=== PATIENT | male | born 1985 | race American Indian/Alaskan Native ===

== ENCOUNTER 2019-02-01 13:07 | Emergency (ER) | payer OTHER ==
[~2019-02-01] VITALS: Ht 170.2 cm; Wt 72.6 kg
[2019-02-01] MEDS ORDERED: INDOMETHACIN50 MG PO (14:34)
== END 2019-02-01 14:55 | disposition home or self-care (01) ==
LOC: ED 13:07
DX: S62.315A Displaced fracture of base of fourth metacarpal bone, left hand, initial encounter for closed fracture (principal); W22.8XXA Striking against or struck by other objects, initial encounter; I10 Essential (primary) hypertension
CPT/HCPCS: 73130; 99283-25

== ENCOUNTER 2019-02-24 06:40 | Day surgery (SDC) | payer OTHER ==
[~2019-02-24] VITALS: Ht 170.2 cm; Wt 72.6 kg
[~2019-02-24 06:40] MED LIST: INDOMETHACIN50 MG PO
--- NOTE | 2019-02-24 07:12 | NUR ---
PATIENT BP ELEVATED, PATIENT APPEARS ANXIOUS, RESTLESS IN BED AND SWEATING. PATIENT STATES " I AM NERVOUS I HAVE NEVER HAD SURGERY". PROVIDED PATIENT WITH REASSURANCE. RECHECKED BP LOWER. PATIENT REPORTS NO CARDIAC HISTORY.
[2019-02-24] MEDS ORDERED: HYDROCODON-ACE1 EA11 PO (10:25)
--- NOTE | 2019-02-24 10:35 | NUR ---
02/24/19 1035 Anitra Nicholas 1026- PT ARRIVES TO PACU AROUSABLE TO VOICE. FALLS INSTANTLY BACK TO SLEEP. RESP EVEN AND UNLABORED. OXYGEN SAT HIGH 90'S TO 100% ON 8L VIA MASK. 1034- OXYGEN TITRATED OFF.
--- NOTE | 2019-02-24 12:06 | NUR ---
PATIENT RATING PAIN 7/10 ON PAIN SCALE. ADMINISTERED 1 TAB NORCO. TOLERATING FOOD AND LIQUIDS. NO REPORTED NAUSEA. UP TO BATHROOM, STABLE ON FEET. PROVIDED EDUCATION WITH DRESSING CARE, AND FOLLOW UP APPOINTMENTS. STRONG RADIAL PULSES HAND IS WARM TO TOUCH. ICE APPLIED AND ELEVATED ON PILLOW. DISCUSSED PAIN MANAGEMENT. VOIDING WELL. CALL LIGHT WITHIN REACH, NO OTHER NEEDS AT THIS TIME.
--- NOTE | 2019-02-25 07:56 | OR ---
[facility] [address] [place], [place] [address] Signed DATE OF OPERATION: 02/24/2019 SURGEON: Toi Mejia MD PREOPERATIVE DIAGNOSIS: Comminuted displaced P1 fracture, left ring finger. POSTOPERATIVE DIAGNOSIS: Comminuted displaced P1 fracture, left ring finger. PROCEDURE PERFORMED: Open reduction and internal fixation of left ring P1. MANAGER QA: NORBERTO Serrano. Bernadette was present critical for all portions of the procedure. ANESTHESIA: General with digital block. TOURNIQUET TIME: 68 minutes. IMPLANTS: 1.3 mm wide plate with 9 screws. BRIEF HISTORY: Errol is a 33-year-old gentleman, who fractured his finger and subsequently was referred to our Clinic. Because of the displaced comminuted angulated nature of the fracture that was extremely unstable, we recommended open reduction and internal fixation. He agreed to proceed. DESCRIPTION OF PROCEDURE: Once consent was obtained, he was taken to the operating room. After adequate anesthesia, he was taken to the operating room. After adequate anesthesia, he was placed on the operating room table with a hand table. The hand was prepped and draped in a standard sterile fashion up to a well-padded proximal arm tourniquet. The C-arm was exsanguinated using Esmarch bandage. Tourniquet was inflated to 200 mmHg. Dorsal lateral approach to P1 was then taken through the skin and subcutaneous tissue. The sagittal band was then longitudinally incised and elevated anteriorly and posteriorly. Electronically Signed By: TOI MEJIA MD 02/25/19 0756 PATIENT NAME: ERROL CAGLE OPERATIVE REPORT DATE OF : 85 REPORT #: [id number] PHYSICIAN: TOI MEJIA MD PCP: [facility] REPORT IS CONFIDENTIAL AND NOT TO BE RELEASED WITHOUT AUTHORIZATION [facility] [address] [place] [id number] Signed The callus was then taken out of the fracture sites of the fragments could be identified. The fracture was then reduced with longitudinal traction, manipulation, and held with a clamp. This was checked using image intensifier and found to be satisfactory. The wide plate was then fashioned to fit the dorsal lateral aspect, capturing the displaced fragment. The proximal and distal ends at one screw in the midportion of the plate were placed, checked using image intensifier, and found to be satisfactory. The clamp was removed. Remaining screws were drilled and appropriate length screws were placed. Two screws were switched out for being too long on the final radiographs. Final radiographs showed good plate placement, alignment and reduction. The wound was then copiously irrigated with antibiotic solution. The sagittal band was then reduced and repaired using 4-0 Vicryl, the subcutaneous tissue with 3-0 Vicryl, and the skin with 3-0 nylon. The wound was then dressed with Xeroform, 4 x 8, and an ulnar gutter splint. He tolerated the procedure well. All sponge, needle, and instrument counts were correct. Toi Mejia MD BA/OSMAR /[id number] Copies: ~ Electronically Signed By: TOI MEJIA MD 02/25/19 0756 PATIENT NAME: TSERINGERROLSHARAD YIP OPERATIVE REPORT DATE OF : 85 REPORT #: [id number] PHYSICIAN: TOI MEJIA MD PCP: [facility] REPORT IS CONFIDENTIAL AND NOT TO BE RELEASED WITHOUT AUTHORIZATION
== END 2019-02-24 12:30 | disposition home or self-care (01) ==
LOC: DS 06:40 → OPS 06:40 → DS 08:45 → OPS 12:30
PROVIDERS: Specialist
PROC: 0PSV04Z Reposition Left Finger Phalanx with Internal Fixation Device, Open Approach (ICD-10-PCS; principal; 2019-02-24 08:45)
DX: S62.615A Displaced fracture of proximal phalanx of left ring finger, initial encounter for closed fracture (principal); F17.210 Nicotine dependence, cigarettes, uncomplicated; F12.90 Cannabis use, unspecified, uncomplicated
CPT/HCPCS: 73120; A9270; J0330; J0690; J1885; J2250; J2405; J2704; J2795; J3010; J7121

== ENCOUNTER 2020-01-28 12:53 | Emergency (ER) | payer OTHER ==
[~2020-01-28] VITALS: Ht 170.2 cm; Wt 72.6 kg
[~2020-01-28 12:53] MED LIST changes: +HYDROCODON-ACE1 EA11 PO
== END 2020-01-28 14:49 | disposition home or self-care (01) ==
LOC: ED 12:53
DX: S60.221A Contusion of right hand, initial encounter (principal); W01.198A Fall on same level from slipping, tripping and stumbling with subsequent striking against other object, initial encounter; Y99.0 Civilian activity done for income or pay; I10 Essential (primary) hypertension; F17.200 Nicotine dependence, unspecified, uncomplicated
CPT/HCPCS: 73130; 99283-25

== ENCOUNTER 2023-08-02 11:11 | Emergency (ER) | payer OTHER ==
[~2023-08-02] VITALS: Ht 170.2 cm; Wt 75.0 kg
[2023-08-02 11:25] LABS: BASOPHILS 0.4 % (0-2); EOSINOPHILS 0.1 % (0-6); HEMATOCRIT 39.4 % (35.0-50.0); HEMOGLOBIN 13.3 g/dL (12.0-18.0); LYMPHOCYTES 8.4 % (24-44); MCH 32.4 (27-36); MCHC 33.8 g/dl (30-36); MCV 95.7 fl (81-99); MONOCYTES 4.8 % (0-12); NEUTROPHILS 86.3 % (39-80); PLATELET COUNT 105 K/uL (140-440); RBC 4.12 M/ul (4.3-5.7); RDW 14.3 (10.5-15.0)
[2023-08-02 11:42] LABS: ALBUMIN 3.8 g/dL (3.4-5.0); ALBUMIN/GLOBULIN RATIO 1.03 (1.1-2.4); ALCOHOL, MEDICAL <3 ng/dL (<3); ALKALINE PHOSPHATASE 105 U/L (46-116); ALT (SGPT) 58 U/L (14-59); ANION GAP 22.3 (7-21); AST (SGOT) 71 U/L (15-37); BILIRUBIN, TOTAL 0.9 ng/dL (0.2-1.0); BUN/CREATININE RATIO 5.88 (6.0-28.6); CALCIUM 8.8 mg/dL (8.5-10.1); CARBON DIOXIDE 19 mmol/L (21-32); CHLORIDE 98 mmol/L (98-107); CREATININE, SERUM 1.19 mg/dL (0.70-1.30); GLOMERULAR FILTRATION RATE,EST 80 mL/min (>60); POTASSIUM 3.3 mmol/L (3.5-5.1); PROTEIN, TOTAL 7.5 g/dL (6.4-8.2); UREA NITROGEN 7 mg/dL (7-18)
[2023-08-02] MEDS ORDERED: SODIUM CHLORIDE 0.9% 1,000 ML IV PRN (12:00)
[2023-08-02 12:21] LABS: BILIRUBIN, URINE NEGATIVE (negative); BLOOD/HGB, URINE MODERATE (Negative); KETONE, URINE SMALL (Negative); LEUK ESTERASE, URINE NEGATIVE (negative); NITRITE, URINE NEGATIVE (negative)
[2023-08-02 12:33] LABS: BACTERIA, URINE NONE SEEN /hpf (negative); CASTS, URINE HYALINE 1+ \\lpf; COLLECTION TYPE, URINE CLEAN CATCH; CRYSTALS, URINE NONE SEEN (0-1+); EPITHELIAL CELLS, URINE SQUAMOUS 1+ /lpf (0-1+); REFLEX CULTURE, URINE No (No); WHITE BLOOD CELLS, URINE 0-1 /HPF (0-5)
[2023-08-02] MEDS ORDERED: ACETAMINOPHEN 500 MG TAB PO ONE (12:45)
[2023-08-02] MEDS ORDERED: IBUPROFEN 600 MG TAB PO ONE (12:45)
[2023-08-02] MEDS ORDERED: LORazepam 2 MG/ML VIAL IV ONE (13:00)
[2023-08-02] MEDS ORDERED: CHLORDIAZEPOXID25 MG PO (13:06)
[2023-08-02 13:11] LABS: AMPHETAMINES, URINE NEGATIVE (NEGATIVE); BARBITURATES, URINE NEGATIVE (NEGATIVE); BENZODIAZEPINE, URINE NEGATIVE (NEGATIVE); BUPRENORPHINE, URINE NEGATIVE (NEGATIVE); CANNABINOID, URINE POSITIVE (NEGATIVE); COCAINE, URINE NEGATIVE (NEGATIVE); ECSTASY, URINE NEGATIVE (NEGATIVE); FENTANYL, URINE NEGATIVE (NEGATIVE); METHADONE, URINE NEGATIVE (NEGATIVE); OPIATES, URINE NEGATIVE (NEGATIVE); OXYCODONE, URINE NEGATIVE (NEGATIVE); PHENCYCLIDINE, URINE NEGATIVE (NEGATIVE)
[2023-08-02 13:42] VITALS: BP 136/100
--- NOTE | 2023-08-02 21:45 | EKG ---
[facility] [address] [place] [address] Signed Sinus tachycardia Possible Inferior infarct , age undetermined Abnormal ECG No previous ECGs available Confirmed by Juancho Pastor MD () on 08/02/2023 9:45:10 PM Electronically Signed By: JUANCHO PASTOR MD 08/02/23 2145 PATIENT NAME: KIANA CAGLE Electrocardiogram DATE OF : 85 PHYSICIAN: JUANCHO PASTOR MD REPORT #: [id number] REPORT IS CONFIDENTIAL AND NOT TO BE RELEASED WITHOUT AUTHORIZATION
== END 2023-08-02 13:42 | disposition home or self-care (01) ==
LOC: ED 11:11
PROVIDERS: Emergency Medicine
DX: R56.9 Unspecified convulsions (principal); F10.939 Alcohol use, unspecified with withdrawal, unspecified; I10 Essential (primary) hypertension; F17.200 Nicotine dependence, unspecified, uncomplicated
CPT/HCPCS: 36415; 70450; 80053; 80307; 81001; 83690; 85025; 93005; 93010; 96374; 99285-25; A9270; G0480; J2060; J7030

== ENCOUNTER 2024-03-27 22:42 | Emergency (ER) | payer OTHER ==
[~2024-03-27] VITALS: Ht 170.2 cm; Wt 65.8 kg
[2024-03-28] MEDS ORDERED: LACTATED RINGER'S 1,000 ML IV ONE (00:15)
[2024-03-28] MEDS ORDERED: THIAMINE HCL 100 MG TAB PO ONE (00:15)
[2024-03-28 00:34] LABS: EOSINOPHILS 1.2 % (0-6); HEMATOCRIT 40.7 % (35.0-50.0); HEMOGLOBIN 14.2 g/dL (12.0-18.0); LYMPHOCYTES 15.1 % (24-44); MCV 94.4 fl (81-99); MONOCYTES 12.4 % (0-12); NEUTROPHILS 70.3 % (39-80); PLATELET COUNT 184 K/uL (140-440); RBC 4.31 M/ul (4.3-5.7); RDW 13.9 (10.5-15.0)
[2024-03-28 00:47] LABS: ALBUMIN 3.8 g/dL (3.4-5.0); ALBUMIN/GLOBULIN RATIO 0.97 (1.1-2.4); ANION GAP 16.2 (7-21); BILIRUBIN, TOTAL 0.3 ng/dL (0.2-1.0); BUN/CREATININE RATIO 7.77 (6.0-28.6); CREATININE, SERUM 0.9 mg/dL (0.70-1.30); POTASSIUM 3.2 mmol/L (3.5-5.1); PROTEIN, TOTAL 7.7 g/dL (6.4-8.2)
[2024-03-28] MEDS ORDERED: POTASSIUM CHLORIDE 10 MEQ TABCR PO ONE (01:30)
[2024-03-28 03:20] VITALS: BP 133/100
== END 2024-03-28 03:20 | disposition home or self-care (01) ==
LOC: ED 22:42
PROVIDERS: Family Medicine
DX: F10.10 Alcohol abuse, uncomplicated (principal); F19.20 Other psychoactive substance dependence, uncomplicated; I10 Essential (primary) hypertension; F17.200 Nicotine dependence, unspecified, uncomplicated
CPT/HCPCS: 36415; 80053; 83735; 85025; 99284; A9270; J7121

== ENCOUNTER 2024-05-03 22:33 | Emergency (ER) | payer OTHER ==
[~2024-05-03] VITALS: Ht 170.2 cm; Wt 70.9 kg
[~2024-05-03 22:33] MED LIST changes: +CHLORDIAZEPOXID25 MG PO; +NALTREXONE HCL50 MG PO; +NEURONTIN100 MG PO
[2024-05-03 23:18] LABS: BILIRUBIN, URINE NEGATIVE (negative); BLOOD/HGB, URINE NEGATIVE (Negative); KETONE, URINE NEGATIVE (Negative); LEUK ESTERASE, URINE NEGATIVE (negative); NITRITE, URINE NEGATIVE (negative); PH, URINE 6.5 (5-7)
[2024-05-03 23:24] LABS: BASOPHILS 0.8 % (0-2); EOSINOPHILS 0.9 % (0-6); HEMATOCRIT 40.9 % (35.0-50.0); HEMOGLOBIN 14.1 g/dL (12.0-18.0); LYMPHOCYTES 40.1 % (24-44); MCH 32.2 (27-36); MCHC 34.4 g/dl (30-36); MCV 93.6 fl (81-99); MONOCYTES 13.4 % (0-12); NEUTROPHILS 44.8 % (39-80); PLATELET COUNT 275 K/uL (140-440); RBC 4.37 M/ul (4.3-5.7); RDW 14.5 (10.5-15.0)
[2024-05-03 23:28] LABS: AMPHETAMINES, URINE POSITIVE (NEGATIVE); BARBITURATES, URINE NEGATIVE (NEGATIVE); BENZODIAZEPINE, URINE NEGATIVE (NEGATIVE); BUPRENORPHINE, URINE NEGATIVE (NEGATIVE); CANNABINOID, URINE POSITIVE (NEGATIVE); COCAINE, URINE NEGATIVE (NEGATIVE); ECSTASY, URINE NEGATIVE (NEGATIVE); FENTANYL, URINE NEGATIVE (NEGATIVE); METHADONE, URINE NEGATIVE (NEGATIVE); OPIATES, URINE NEGATIVE (NEGATIVE); OXYCODONE, URINE NEGATIVE (NEGATIVE); PHENCYCLIDINE, URINE NEGATIVE (NEGATIVE)
[2024-05-03 23:36] LABS: BACTERIA, URINE RARE /hpf (negative); CASTS, URINE NONE SEEN \\lpf; COLLECTION TYPE, URINE CLEAN CATCH; CRYSTALS, URINE NONE SEEN (0-1+); EPITHELIAL CELLS, URINE SQUAMOUS 1+ /lpf (0-1+); REFLEX CULTURE, URINE Yes (No)
[2024-05-03 23:59] LABS: ACETAMINOPHEN 0 ug/mL (10-30); ALBUMIN 4.1 g/dL (3.4-5.0); ALBUMIN/GLOBULIN RATIO 1.11 (1.1-2.4); ALKALINE PHOSPHATASE 100 U/L (46-116); ALT (SGPT) 27 U/L (14-59); ANION GAP 15.5 (7-21); AST (SGOT) 36 U/L (15-37); BILIRUBIN, TOTAL 0.4 mg/dL (0.2-1.0); BUN/CREATININE RATIO 4.28 (6.0-28.6); CALCIUM 8.7 mg/dL (8.5-10.1); CARBON DIOXIDE 28 mmol/L (21-32); CHLORIDE 102 mmol/L (98-107); GLOMERULAR FILTRATION RATE,EST 121 mL/min (>60); POTASSIUM 3.5 mmol/L (3.5-5.1); PROTEIN, TOTAL 7.8 g/dL (6.4-8.2); SALICYLATE 3.1 mg/dL (2.8-20.0); TSH, 3RD GENERATION 5.251 uIU/mL (0.358-3.740); UREA NITROGEN 3 mg/dL (7-18)
[2024-05-04] LABS: ALCOHOL, MEDICAL 478 ng/dL (<3)
[2024-05-04] MEDS ORDERED: LORazepam 1 MG TAB PO PRN ×2 (00:15→06:30)
[2024-05-04] MEDS ORDERED: FOLIC ACID 1 MG/0.2 ML ML ONE (06:29)
[2024-05-04] MEDS ORDERED: THIAMINE HCL 100 MG,FOLIC ACID 1 MG,MULTIVITAMINS 10 ML in SODIUM CHLORIDE 0.9% 1,000 ML IV ONE (06:30)
[2024-05-04] MEDS ORDERED: diazePAM 5 MG TAB PO PRN (06:30)
[2024-05-04] MEDS ORDERED: LORazepam 2 MG/ML VIAL IV/IM PRN (06:30)
[2024-05-04] MEDS ORDERED: diazePAM 10 MG/2 ML SYR IV PRN (06:30)
[2024-05-04] MEDS ORDERED: diazePAM 5 MG TAB PO SCH (08:00)
[2024-05-04] MEDS ORDERED: NITROFURANTOIN MONOHYD MACROCR 100 MG CAP PO SCH (08:00)
[2024-05-04] MEDS ORDERED: CHLORDIAZEPOXID25 MG PO (11:37)
[2024-05-04] MEDS ORDERED: ACETAMINOPHEN 500 MG TAB PO ONE (11:45)
[2024-05-04 12:04] VITALS: BP 123/88
[2024-05-05 15:49] LABS: THYROXINE 7.58 ug/dL (4.50-11.70)
== END 2024-05-04 13:17 | disposition home or self-care (01) ==
LOC: ED 22:33
PROVIDERS: Family Medicine
DX: F10.229 Alcohol dependence with intoxication, unspecified (principal); F32.A Depression, unspecified; I10 Essential (primary) hypertension; F17.200 Nicotine dependence, unspecified, uncomplicated; Z79.899 Other long term (current) drug therapy
CPT/HCPCS: 36415; 80053; 80307; 81001; 83735; 84436; 84443; 85025; 87088; 96374; 96375; 96376; 99285-25; A9270; A9270-GY; G0480; J3360; J3411; J7030